=== PATIENT | female | born 1995 | race Caucasian/White ===

== ENCOUNTER 2018-07-30 08:36 | Emergency (ER) | payer BC ==
[2018-07-30 08:54] VITALS: BP 128/74; PULSE 63; TEMP 98.2; BMI 18.6
--- NOTE | 2018-07-30 09:27 | PDOC ---
History of Present Illness - General Chief Complaint: Laceration Stated Complaint: Laceration Time Seen by Provider: 07/30/18 09:00 History Source: Patient Exam Limitations: No Limitations - History of Present Illness Initial Comments: 07/30/18 09:24 Patient is a 22-year-old female who presents to the emergency department today for a laceration to her left thumb. Patient states that she cut herself on a razor approximately 24 hours ago. She states that she has been keeping it covered at home. She was sent down by [facility] for evaluation. Denies numbness and tingling to the thumb, weakness to the thumb, fevers, redness to the site. Pt states her tetanus shot is UTD. Past History - Travel Traveled outside of the country in the last 30 days: No Close contact w/someone who was outside of country & ill: No - Past Medical History Home Medications: Ambulatory Orders NK [No Known Home Medication] 07/30/18 COPD: No Thyroid Disease: No - Immunization History Immunization Up to Date: Yes - Suicide/Smoking/Psychosocial Hx Smoking History: Never smoked Information on smoking cessation initiated: No Hx Alcohol Use: No Drug/Substance Use Hx: No Substance Use Type: None Review of Systems - Review of Systems Able to Perform ROS?: Yes Comments:: 07/30/18 09:22 CONSTITUTIONAL: Absent: fever, chills, diaphoresis, generalized weakness, malaise, loss of appetite MUSCULOSKELETAL: Absent: myalgia, arthralgia, joint swelling SKIN: Present: laceration Absent: rash, itching, pallor HEMATOLOGIC/IMMUNOLOGIC: Absent: easy bleeding, easy bruising, lymphadenopathy, frequent infections NEUROLOGIC: Absent: headache, focal weakness or paresthesias, dizziness, unsteady gait, seizure, mental status changes, bladder or bowel incontinence PSYCHIATRIC: Absent: anxiety, depression, suicidal or homicidal ideation, hallucinations. Is the patient limited Romansh proficient: No *Physical Exam - Vital Signs Last Vital Signs Temp Pulse Resp BP Pulse Ox 98.2 F 63 16 128/74 99 07/30/18 08:52 07/30/18 08:52 07/30/18 08:52 07/30/18 08:52 07/30/18 08:52 - Physical Exam Comments: 07/30/18 09:22 GENERAL: The patient is awake, alert, and fully oriented, in no acute distress. HEAD: Normal with no signs of trauma. EYES: Pupils equal, round and reactive to light, extraocular movements intact, sclera anicteric, conjunctiva clear. EXTREMITIES: Normal range of motion, no edema. NEUROLOGICAL: Normal speech, normal gait. PSYCH: Normal mood, normal affect. SKIN: 1 cm superficial linear laceration to the L dorsal thumb. Pt able to fully flex and extend thumb. Wound appears clean. No tendon exposure. vWarm, Dry , normal turgor, no rashes or lesions noted. Medical Decision Making - Medical Decision Making 07/30/18 09:24 Patient is a 22-year-old female who presents to the emergency department with a left thumb laceration which occurred yesterday. -On exam superficial 1 cm linear laceration to the left dorsal thumb. -Since the laceration occurred over 24 hours ago, cannot close with stitches at this time. -Steri-Strip placed over the wound for approximation. -Patient states her tetanus is up-to-date and she received at age 20. -We will discharge home. -I discussed the physical exam findings, ancillary test results and final diagnoses with the patient. I answered all of the patient's questions. The patient was satisfied with the care received and felt comfortable with the discharge plan and treatment plan. The Patient agrees to follow up with the primary care physician/specialist within 24-72 hours. Return precautions were given. *DC/Admit/Observation/Transfer Diagnosis at time of Disposition: Laceration - Discharge Dispostion Disposition: HOME Condition at time of disposition: Stable Decision to Admit order: No - Referrals Referrals: Yonny Foster MD [Staff Physician] - - Patient Instructions Printed Discharge Instructions: DI for Laceration Repair Steri-Strips Additional Instructions: You had your cut fixed today with steristrips Avoid soaking the hand. Keep it dry when showering. Please keep the area clean and pat dry. You may take Tylenol or Motrin as needed for pain. Return to the emergency department sooner if you have area of redness around the site, purulent drainage, fevers, or have any changes in your symptoms. - Post Discharge Activity Forms/Work/School Notes: Back to Work
== END 2018-07-30 09:41 | disposition home or self-care (01) ==
LOC: JERFT 08:36
DX: S61.012A Laceration without foreign body of left thumb without damage to nail, initial encounter (principal); W27.8XXA Contact with other nonpowered hand tool, initial encounter; Y93.89 Activity, other specified; Y92.89 Other specified places as the place of occurrence of the external cause; Y99.8 Other external cause status
CPT/HCPCS: 99281-25